=== PATIENT | male | born 1995 | race Two or more races ===

== ENCOUNTER 2017-08-08 20:38 | Emergency (ER) | payer SELFPAY ==
[~2017-08-08] VITALS: Ht 177.8 cm; Wt 99.8 kg
[2017-08-08] MEDS ORDERED: ACETAMINOPHEN 325 MG TAB PO ONE ×2 (21:07→21:30)
[2017-08-08 21:18] VITALS: BP 175/97
[2017-08-08] MEDS ORDERED: cefTRIAXone SOD 1,000 MG VL IM ONE (22:15)
== END 2017-08-08 23:39 | disposition home or self-care (01) ==
LOC: ER 20:38
DX: S62.396A Other fracture of fifth metacarpal bone, right hand, initial encounter for closed fracture (principal); S62.308A Unspecified fracture of other metacarpal bone, initial encounter for closed fracture; I10 Essential (primary) hypertension; V43.52XA Car driver injured in collision with other type car in traffic accident, initial encounter; Y93.89 Activity, other specified; Y99.8 Other external cause status; Y92.89 Other specified places as the place of occurrence of the external cause
CPT/HCPCS: 29125; 73130; 96372; 99284; J0696